=== PATIENT | female | born 1955 | race Caucasian/White ===

== ENCOUNTER 2018-09-28 23:24 | Observation (INO) ==
[2018-09-29] MEDS ORDERED: ONDANSETRON 4 MG/2 ML VIAL IV STA (00:01)
[2018-09-29] MEDS ORDERED: SODIUM CHLORIDE 0.9% 500 ML IV STA (00:01)
[2018-09-29] MEDS ORDERED: LORazepam 2 MG/1 ML VIAL IV STA (00:03)
[2018-09-29] MEDS ORDERED: BENZTROPINE 2 MG/2 ML AMP IM ONE (00:08)
[2018-09-29 00:11] LABS: Apearance,Urine CLEAR (Clear); Bilirubin,Urine Negative (Negative); Blood, Urine Negative (Negative); Glucose,Urine (UA) Negative (Negative); Ketones,Urine Negative (Negative); Nitrite,Urine Negative (Negative); Protein,Urine Negative; RBC,Urine <1 /HPF (0-4); Squamous Epithelial Cell,Urine Occasional /HPF (0-10); Urine Color Straw (Yellow); Urine Specific Gravity 1.003 (1.001-1.035); Urine Urobilinogen < 2.0 EU/DL (0.2-1.0); WBC,Urine <1 /HPF (0-6)
[2018-09-29 01:06] LABS: Basophils # 0.1 10*3/uL (0.0-0.2); Basophils % 1.1 % (0.0-0.8); Eosinophils # 0.8 10*3/uL (0.0-0.87); Eosinophils % 9.5 % (0.00-10.9); Hematocrit 42.5 VOL% (35.7-47.0); Hemoglobin 13.9 GM/DL (12.0-16.0); Immature Granulocytes % 0.1 %; Immature Granulocytes Absolute 0.01 #; Lymphocytes # 2.4 10*3/uL (1.4-4.0); Lymphocytes % 28.2 % (21.3-54.2); Mean Corpuscular HGB Conc 32.7 GM/DL (32-36); Mean Corpuscular Hemoglobin 28 PG (27-34); Mean Platelet Volume 9.6 FL (9.6-12.0); Monocytes # 0.7 10*3/uL (0.11-0.8); Monocytes % 7.6 % (1.7-12.7); Neutrophils # 4.6 10*3/uL (1.4-7.4); Neutrophils % 53.5 % (38.7-73.9); Platelet Count 250 T/CUMM (130-400); Red Cell Distribution Width 12.7 % (9.3-17.3); White Blood Count 8.5 T/CUMM (4-12)
[2018-09-29 01:10] LABS: Barbiturates Screen,Urine Negative (Negative); Benzodiazepines Screen,Urine Negative (Negative); Cannabinoid Screen,Urine Negative (Negative); Opiate Screen,Urine Negative (Negative); Phencyclidine Screen,Urine Negative (Negative)
[2018-09-29 01:11] LABS: INR 0.9; PT Patient Result 10.3 SECS; Partial Thromboplastin Time 25.3 SECS (0-40)
[2018-09-29 01:26] LABS: Alanine Aminotransferase 25 U/L (13-56); Albumin 3.5 G/DL (3.4-5.0); Alkaline Phosphatase 86 U/L (45-117); Aspartate Amino Transferase 16 U/L (0-37); Blood Urea Nitrogen 16 MG/DL (7-18); Calcium 9.4 MG/DL (8.5-10.1); Free T4 (Free Thyroxine) 1.19 NG/DL (0.76-1.46); Glucose 136 MG/DL (74-106); Osmolality,Calculated 275.8 MOS/KG (273-304); Potassium 3.8 MMOL/L (3.5-5.1); Sodium 137 MMOL/L (136-145); Total Protein 7.2 G/DL (6.4-8.3); Troponin I < 0.015 NG/ML (0.00-0.045)
[2018-09-29] MEDS ORDERED: ASPIRIN EC 325 MG TABLET PO STA (01:50)
[2018-09-29] MEDS ORDERED: diphenhydrAMINE CAP 25 MG CAPSULE PO PRN (02:01)
[2018-09-29] MEDS ORDERED: guaiFENesin/DM ER 600-30 MG TABLET PO PRN (02:01)
[2018-09-29] MEDS ORDERED: MORPHINE 4 MG/1 ML VIAL IV PRN (02:01)
[2018-09-29] MEDS ORDERED: ONDANSETRON 4 MG/2 ML VIAL IV PRN (02:01)
[2018-09-29] MEDS ORDERED: NICOTINE 21 MG/24 HR PATCH TRANSDERM PRN (02:01)
[2018-09-29] MEDS ORDERED: ACETAMINOPHEN 325 MG TABLET PO PRN (02:01)
[2018-09-29] MEDS ORDERED: BISACODYL 5 MG TABLET PO PRN (02:01)
[2018-09-29 04:58] LABS: Risk Ratio 1.79; VLDL CHOLESTEROL 20.4 MG/DL
[2018-09-29] MEDS ORDERED: ALENDRONATE PO SCH (06:00)
[2018-09-29] MEDS ORDERED: PANTOPRAZOLE 40 MG TABLET PO SCH (09:00)
[2018-09-29] MEDS ORDERED: ATORVASTATIN 10 MG TABLET PO SCH (09:00)
[2018-09-29] MEDS ORDERED: HYDROXYCHLOROQUINE 200 MG TABLET PO SCH (09:00)
[2018-09-29] MEDS ORDERED: OXYBUTYNIN 5 MG TABLET PO SCH (09:00)
[2018-09-29] MEDS ORDERED: ASPIRIN EC 81 MG TABLET PO SCH (14:00)
[2018-09-29 16:07] VITALS: BP 133/66
== END 2018-09-29 17:50 | disposition home or self-care (01) ==
LOC: N.ED 23:24 → N.EDINP 23:24 → N.4E 09-29 02:30
PROVIDERS: ADMIT Internal Medicine; ATTEND Internal Medicine